=== PATIENT | male | born 1960 | race Caucasian/White ===

== ENCOUNTER 2017-07-15 08:30 | Inpatient (IN) ==
[2017-07-07 17:03] LABS: Appearance,Urine CLEAR; Bilirubin,Urine NEG (NEG); Color,Urine YELLOW; Glucose,Urine (UA) NEGATIVE (NEG); Leukocyte Esterase,Urine NEG /uL (NEG); Nitrate,Urine NEG (NEG); Protein,Urine NEG (NEG); Urine Blood NEG mg/dL (<0.03); Urobilinogen,Urine NEG (NEG)
[2017-07-07 17:16] LABS: Basophils # (Auto) 0 K/mcL (0.0-0.3); Basophils % (Auto) 0.1 % (0.0-2.0); Eosinophils # (Auto) 0.1 K/mcL (0.0-0.7); Eosinophils % (Auto) 1.4 % (0.0-7.0); Granulocytes % (Auto) 69.5 % (38.0-78.0); Lymphocytes # (Auto) 1.2 K/mcL (1.5-4.8); Lymphocytes % (Auto) 20.5 % (15.5-49.0); Mean Corpuscular HGB Conc 33.7 g/dL (31.0-36.0); Mean Corpuscular Hemoglobin 29.6 pg (26.0-34.0); Monocytes # (Auto) 0.5 K/mcL (0.1-0.9); Monocytes % (Auto) 8.5 % (1.0-12.0); Platelet Count 258 K/mcL (140-440); RBC 4.66 M/mcL (4.50-5.90); Red Cell Distribution Width 13.5 % (11.5-14.5)
[2017-07-07 17:26] LABS: Blood Urea Nitrogen 16 mg/dl (6-20)
--- NOTE | 2017-07-09 09:32 | EKG Interpretations ---
EKG from 07/07/2017: Bradycardia of 54. Otherwise unremarkable EKG. GITA:raul Job ID: [id number] Doc ID: [id number] Yeison Rondon MD
[~2017-07-15 08:30] MED LIST: ACETAMINOPHEN 500 MG TABLET PO SCH; CELECOXIB 200 MG CAPSULE PO SCH; KETOROLAC 30 MG, ROPIVACAINE HCL/PF 49.5 ML, EPINEPHrine 0.5 MG, 0.9 % SODIUM CHLORIDE ... IJ SCH; PREGABALIN 75 MG CAPSULE PO SCH; ceFAZolin 1 GM VIAL IV SCH; oxyCODONE 10 MG TAB.ER.12H PO SCH
[2017-07-15] MEDS ORDERED: PROPOFOL 200 MG/20 ML VIAL IV ONE (13:40)
[2017-07-15] MEDS ORDERED: TRANEXAMIC ACID 1,000 MG/10 ML VIAL IV ONE (13:40)
[2017-07-15] MEDS ORDERED: ONDANSETRON 4 MG/2 ML VIAL IV ONE (13:40)
[2017-07-15] MEDS ORDERED: ROPIVACAINE HCL/PF 20 ML VIAL IJ ONE (13:40)
[2017-07-15] MEDS ORDERED: LIDOCAINE HCL/PF 100 MG/5 ML SYRINGE IV ONE (13:40)
[2017-07-15] MEDS ORDERED: DEXAMETHASONE 10 MG/ML VIAL IV ONE (13:40)
[2017-07-15] MEDS ORDERED: MIDAZOLAM 2 MG/2 ML VIAL IV ONE (13:40)
[2017-07-15] MEDS ORDERED: GENTAMICIN SULFATE 800 MG/20 ML VIAL IR ONE (14:43)
[2017-07-15] MEDS ORDERED: NALOXONE HCL 0.4 MG/ML VIAL IV PRN (15:00)
[2017-07-15] MEDS ORDERED: LACTATED RINGERS 1,000 ML IV SCH (15:00)
[2017-07-15] MEDS ORDERED: LACTATED RINGERS 250 ML IV PRN (15:00)
[2017-07-15] MEDS ORDERED: ePHEDrine 50 MG/ML AMPUL IV PRN (15:00)
[2017-07-15] MEDS ORDERED: FLUMAZENIL 0.1 MG/ML ML IV PRN (15:00)
[2017-07-15] MEDS ORDERED: METHOCARBAMOL 1,000 MG/10 ML VIAL IV PRN (15:00)
[2017-07-15] MEDS ORDERED: BENZOCAINE/MENTHOL 1 LOZENGE PO PRN ×2 (15:00→15:28)
[2017-07-15] MEDS ORDERED: HYDROmorphone 2 MG/ML SYRINGE IV PRN ×2 (15:00→15:28)
[2017-07-15] MEDS ORDERED: ONDANSETRON 4 MG/2 ML VIAL IV PRN ×2 (15:00→15:28)
[2017-07-15] MEDS ORDERED: MEPERIDINE 25 MG/ML SYRINGE IV PRN (15:00)
[2017-07-15] MEDS ORDERED: IPRATROPIUM/ALBUTEROL 3 ML AMPUL.NEB NEB PRN (15:00)
[2017-07-15] MEDS ORDERED: diphenhydrAMINE 50 MG/ML VIAL IV PRN (15:00)
[2017-07-15] MEDS ORDERED: MEPERIDINE 50 MG/ML SYRINGE IM PRN (15:00)
[2017-07-15] MEDS ORDERED: fentaNYL 100 MCG/2 ML VIAL IV PRN (15:00)
--- NOTE | 2017-07-15 15:27 | Brief Operative Note ---
Date of procedure: 07/15/17 Pre-op diagnosis: right knee oa Post-op diagnosis: same Procedure: right total knee arthroplasty Grafts/Implants: Yes Anesthesia: spinal Complications: none Surgeon: Joey Thayer Plumber Helper: Ngozi Ozuna Estimated blood loss (cc): 100 Tourniquet Time (Minutes): 64 Specimens Removed/Pathology: none sent Disposition: PACU
[2017-07-15] MEDS ORDERED: METHOCARBAMOL 750 MG TABLET PO PRN (15:28)
[2017-07-15] MEDS ORDERED: MAGNESIUM HYDROXIDE 30 ML ORAL.SUSP PO PRN (15:28)
[2017-07-15] MEDS ORDERED: POLYETHYLENE GLYCOL 3350 17 GM PACKET PO PRN (15:28)
[2017-07-15] MEDS ORDERED: TRANEXAMIC ACID 1,000 MG/10 ML VIAL IV SCH (15:28)
[2017-07-15] MEDS ORDERED: FLEETS ADULT ENEMA PR PRN (15:28)
[2017-07-15] MEDS ORDERED: ONDANSETRON ODT 4 MG TABLET SL PRN (15:28)
[2017-07-15] MEDS ORDERED: BISACODYL 10 MG SUPP.RECT PR PRN (15:28)
--- NOTE | 2017-07-15 15:52 | Operative Note ---
DATE OF OPERATION: 07/15/2017 PREOPERATIVE DIAGNOSIS: Degenerative joint disease, right knee. POSTOPERATIVE DIAGNOSIS: Degenerative joint disease, right knee. PROCEDURE: Right total knee arthroplasty. SURGEON: Sun Thayer M.D. CELL BUILDER SURGEON: Ngozi Ozuna PA-C and Ellen Saunders PA-C. ANESTHESIA: Spinal with LMA assist. ESTIMATED BLOOD LOSS: 100 mL. COMPLICATIONS: None noted. SPECIMENS REMOVED: None. DRAINS: None. TOURNIQUET TIME: 64 minutes at 300 mmHg. IMPLANTS: DePuy CMW2 bone cement with gentamicin x4, 20 grams; DePuy Attune femoral posterior stabilized size 6 right cemented; DePuy Attune tibial insert fixed bearing posterior stabilized size 6, 5 mm AOX; DePuy Attune tibial base fixed bearing size 5 cemented; DePuy Attune patella medialized dome 38 mm cemented AOX. INDICATIONS: The patient has had a long-standing history of worsening pain in the knee that has failed conservative treatment. Radiographs have confirmed advanced degenerative joint disease. After a long discussion about treatment options, the patient elected to proceed with a knee arthroplasty. The risks and benefits were discussed with the patient in detail including, but not limited to, the risks of anesthesia, problems with the heart or lungs related to anesthesia, infection, compromise or injury to the nerves and blood vessels, deep venous thrombosis, pulmonary embolism, pneumonia, continued pain after surgery, worsening pain or symptoms after surgery, swelling, loss of motion, instability, leg length discrepancy, and need for repeat surgery. DESCRIPTION OF PROCEDURE: The patient was seen in the pre-anesthesia waiting room where all questions were answered and the correct side and site were identified and marked. The patient was transferred to the operating room and administered the anesthetic and given pre-operative antibiotics. A time-out was then called. The extremity was prepped and draped, exsanguinated, and the tourniquet was inflated to 300 mmHg. A midline skin incision was then made with a standard medial parapatellar arthrotomy. Debridement of the menisci, ACL, and PCL was performed followed by balancing releases in the medial lateral plane. We then established intramedullary access to both the femur and tibia in a standard fashion. The femoral guide joaquín was initially placed with the distal femoral guide, pinned into place, and the distal femoral cut was performed and checked with a flat plate. We then turned our attention to the tibia. The intramedullary guide was placed with the proximal tibial cutting block. The block was appropriately positioned off the affected side, varus and valgus was checked with the extra-medullary guide, and the block was pinned into place. The proximal tibial cut was performed and the tibia was prepared for the tibial implant with appropriate rotation. The tibia, femur, and posterior compartment were debrided of osteophytes, loose bodies, and meniscal fragments We then used the gap balancing technique to balance extension with the first two cuts and good balancing was obtained with a 10 millimeter gap block. We turned our attention back to the femur and used the referencing block and implant to size appropriately. Using the gap balancing technique for the flexion space we set our rotation of the femur off the tibial cut. Anesthesia gave the patient 1 gram of Tranexamic Acid via an intravenous route. We placed the 4 in 1 cutting block and made anterior, posterior, and chamfer cuts. Box plasty cuts were then made in a standard fashion for the posterior stabilized prosthesis. We then completed osteophyte release and posterior capsule release from the posterior compartment. Trials were placed and we chose the polyethylene insert thickness that provided the best stability in all planes. With the trials in place, we did a measured resection for a resurfacing patella. We sized the patella and placed the patella trial and performed a lateral facetectomy with the saw and rongeur. Good tracking was obtained. We removed all trials, irrigated and dried all cut surfaces. We cemented the components into place including tibia, femur and patella. We placed a trial liner and held the knee in full extension with the patella compressed while the cement cured. We then removed all excess cement and placed the final polyethylene tibiofemoral component. Irrigation with 3 liters of antibiotic saline was then performed using jet-lavage. We let the tourniquet down and coagulated bleeding vessels. We injected a 100 cubic centimeter volume including Ropivacaine 49.25 cubic centimeters at 5 milligrams per cubic centimeter, Ketorolac 30 milligrams, and Epinephrine 0.5 milligrams into 100 cubic centimeters volume of normal saline. We placed a deep drain and closed the retinaculum with looped #0 Maxon. We closed the subcutaneous tissue and skin in layers out to ratna in the skin. A sterile pressure dressing was applied. All needle and sponge counts were correct. The patient was transferred to the recovery room in stable condition. AMARIS:dima Job ID: [id number] Doc ID: [id number] Sun Thayer MD
[2017-07-15] MEDS: 0.9 % SODIUM CHLORIDE 1,000 ML IV SCH ×2 (16:53→23:18)
--- NOTE | 2017-07-15 17:23 | XRay Report ---
CLINICAL INFORMATION: Postop total knee prostheses COMPARISON: None. FINDINGS: Total knee prostheses is anatomically aligned. No osseous normality. Soft tissues swelling and gas seen as expected. IMPRESSION: Negative Interpreted and Authenticated by: Joey Cleveland 07/15/17
[2017-07-15] MEDS: KETOROLAC 15 MG/ML VIAL IV SCH ×2 (18:10→23:29)
[2017-07-15] MEDS: ceFAZolin 1 GM VIAL IV SCH (20:00)
[2017-07-15] MEDS: ASPIRIN 325 MG ENTERIC COATED TABLET PO SCH (20:00)
[2017-07-15] MEDS: DOCUSATE SODIUM 100 MG CAPSULE PO SCH (20:00)
[2017-07-15] MEDS: 0.9 % SODIUM CHLORIDE 10 ML SYRINGE IV SCH (20:01)
[2017-07-15] MEDS ORDERED: SENNOSIDES 1 TABLET PO SCH (21:00)
[2017-07-16] MEDS: ceFAZolin 1 GM VIAL IV SCH (04:52)
[2017-07-16] MEDS: 0.9 % SODIUM CHLORIDE 10 ML SYRINGE IV SCH (04:53)
[2017-07-16] MEDS: KETOROLAC 15 MG/ML VIAL IV SCH ×2 (05:30→11:46)
--- NOTE | 2017-07-16 07:35 | Orthopedic Progress Note ---
Subjective Patient information: Note initiated : 07/16/17 at 7:34 am Service Date, if different from initiated Date: [] Patient: Joey Hendrix 57 y/o M admitted on 07/15/17 for Right Total Knee Arthroplasty. Chief Complaint: [] Interval history: doing well, pain under control Objective Vital signs: Vital Signs Temp Pulse Pulse Pulse Resp BP BP 07/16/17 07:21 98.0 F 14 117/64 07/16/17 07:01 53 L 07/16/17 03:22 98.0 F 54 L 14 116/64 07/15/17 23:30 97.8 F 57 L 14 136/58 07/15/17 19:09 98.0 F 57 L 16 137/67 07/15/17 18:00 119/66 07/15/17 17:30 113/62 07/15/17 17:00 111/65 07/15/17 16:35 47 L 108/64 07/15/17 16:10 97.8 F 70 16 136/56 07/15/17 16:05 97.8 F 56 L 16 128/67 07/15/17 16:00 97.8 F 49 L 16 127/61 07/15/17 15:55 97.8 F 56 L 16 132/56 07/15/17 10:45 97.8 F 62 16 136/72 Pulse Ox 07/16/17 07:21 97 07/16/17 07:01 97 07/16/17 03:22 96 07/15/17 23:30 98 07/15/17 19:09 100 07/15/17 18:00 100 07/15/17 17:30 95 07/15/17 17:00 97 07/15/17 16:35 97 07/15/17 16:10 100 07/15/17 16:05 100 07/15/17 16:00 100 07/15/17 15:55 100 07/15/17 10:45 93 Intake and Output 07/15/17 07/16/17 07/16/17 21:59 05:59 13:59 Intake Total 1700 / 1700 800 / 800 Output Total 650 / 650 900 / 900 200 / 200 Balance 1050 / 1050 -100 / -100 -200 / -200 Intake: Oral 800 / 800 IV - Manual Only 1700 / 1700 Output: Urine Catheter Amount 400 / 400 Void Amount 250 / 250 900 / 900 200 / 200 Other: Meal Dinner Percent of Meal Consumed 100% Feeding Ability Independent # Voids 1 Weight 189 lb 5 oz Intake & Output: Intake & Output 07/15/17 07/16/17 07/16/17 21:59 05:59 13:59 Intake Total 1700 / 1700 800 / 800 Output Total 650 / 650 900 / 900 200 / 200 Balance 1050 / 1050 -100 / -100 -200 / -200 Weight 189 lb 5 oz Intake: Oral 800 / 800 IV - Manual Only 1700 / 1700 Output: Urine Catheter Amount 400 / 400 Void Amount 250 / 250 900 / 900 200 / 200 Other: Meal Dinner Percent of Meal Consumed 100% Feeding Ability Independent # Voids 1 Incision: Yes healing Incision clean and dry: Yes Dressing: Yes clean, Yes dry, Yes intact Weight bearing status: full Neurological exam IM: Yes alert, Yes normal gait, Yes oriented X3, Yes motor sensory intact, Yes neurovascular intact Extremities exam IM: No calf tenderness, Yes Foot pink and warm, Yes neurovascular intact - Labs CBC & BMP: 07/16/17 06:23 07/07/17 15:40 Labs: Orthopedic Labs 07/07/17 14:54 PT 14.1 INR 1.1 07/16/17 07/07/17 06:23 14:54 Hgb 12.2 L 13.8 Hct 36.3 L 41.0 Assessment and Plan (1) Knee osteoarthritis pod 1 s/p tka wbat pain control dvt prophylaxis d/c planning Status: Acute
--- NOTE | 2017-07-16 07:36 | Discharge Summary ---
Ortho Discharge - TKA - Patient Instructions Diet: Regular Diet Activity: activity as tolerated, ambulate with assistive device, weight bearing as tolerated Total Knee Protocol: For Total Knee: Start ROM LUIGI with stationary bike or rocking chair. Work on gaining full extension of knee. Posterior dislocation precautions provided. Hip abductor strengthening and gait training instructions provided. Apply Cryocuff as instructed. Dressing Care: May shower in 2 days Patient Education: Total Knee Replacement (DC), General Anesthesia (GEN) - Problem Maintenance (1) Knee osteoarthritis Status: Acute - Follow Up Plan Disposition: Home, Self-Care Prognosis: Good Rehab Potential: Good I certify that the patient requires SNF services: No Overall status at discharge: patient is progressing back to baseline
[2017-07-16] MEDS: 0.9 % SODIUM CHLORIDE 1,000 ML IV SCH (07:48)
[2017-07-16] MEDS ORDERED: MULTIVIT,THER IRON,CA,FA & MIN 1 TABLET PO SCH (09:00)
[2017-07-16] MEDS: HYDROcodone/APAP 10/325MG TABLET PO PRN ×2 (09:07→12:41)
[2017-07-16] MEDS: DOCUSATE SODIUM 100 MG CAPSULE PO SCH (09:07)
[2017-07-16] MEDS: ASPIRIN 325 MG ENTERIC COATED TABLET PO SCH (09:10)
== END 2017-07-16 12:45 | disposition home or self-care (01) | DRG 470 ==
LOC: MEDSUR 10:15
PROVIDERS: ADMIT Orthopaedic Surgery Sports Medicine; ATTEND Orthopaedic Surgery Sports Medicine

== ENCOUNTER 2017-09-16 08:40 | Inpatient (IN) ==
[2017-09-15 13:16] LABS: Basophils # (Auto) 0 K/mcL (0.0-0.3); Basophils % (Auto) 0.4 % (0.0-2.0); Eosinophils # (Auto) 0.2 K/mcL (0.0-0.7); Eosinophils % (Auto) 2.7 % (0.0-7.0); Granulocytes % (Auto) 60.7 % (38.0-78.0); Lymphocytes # (Auto) 1.4 K/mcL (1.5-4.8); Lymphocytes % (Auto) 22.3 % (15.5-49.0); Mean Cell Volume 86.8 fL (80.0-100.0); Mean Corpuscular HGB Conc 34.5 g/dL (31.0-36.0); Mean Corpuscular Hemoglobin 29.9 pg (26.0-34.0); Monocytes # (Auto) 0.9 K/mcL (0.1-0.9); Monocytes % (Auto) 13.9 % (1.0-12.0); Platelet Count 309 K/mcL (140-440); RBC 4.52 M/mcL (4.50-5.90); Red Cell Distribution Width 13.4 % (11.5-14.5)
[2017-09-15 13:39] LABS: Blood Urea Nitrogen 16 mg/dl (6-20)
[2017-09-15 14:59] LABS: Appearance,Urine CLEAR; Bilirubin,Urine NEG (NEG); Color,Urine YELLOW; Glucose,Urine (UA) NEGATIVE (NEG); Leukocyte Esterase,Urine NEG /uL (NEG); Nitrate,Urine NEG (NEG); Protein,Urine NEG (NEG); Specific Gravity,Urine 1.023 (1.000-1.035); Urine Blood NEG mg/dL (<0.03); Urobilinogen,Urine NEG (NEG)
[~2017-09-16 08:40] MED LIST changes: -ACETAMINOPHEN 500 MG TABLET PO SCH
[2017-09-16] MEDS ORDERED: PHENYLEPHRINE 10 MG/ML VIAL IV ONE (15:45)
[2017-09-16] MEDS ORDERED: PROPOFOL 200 MG/20 ML VIAL IV ONE (15:45)
[2017-09-16] MEDS ORDERED: ROPIVACAINE HCL/PF 20 ML VIAL IJ ONE (15:45)
[2017-09-16] MEDS ORDERED: LIDOCAINE HCL/PF 100 MG/5 ML SYRINGE IV ONE (15:45)
[2017-09-16] MEDS ORDERED: MIDAZOLAM 5 MG/5 ML VIAL IV ONE (15:45)
[2017-09-16] MEDS ORDERED: TRANEXAMIC ACID 1,000 MG/10 ML VIAL IV ONE (15:45)
[2017-09-16] MEDS ORDERED: ONDANSETRON 4 MG/2 ML VIAL IV ONE (15:45)
[2017-09-16] MEDS ORDERED: GLYCOPYRROLATE 0.2 MG/ML VIAL IV ONE (15:45)
[2017-09-16] MEDS ORDERED: DEXAMETHASONE 10 MG/ML VIAL IV ONE (15:45)
[2017-09-16] MEDS ORDERED: GENTAMICIN SULFATE 800 MG/20 ML VIAL IR ONE (16:26)
[2017-09-16] MEDS ORDERED: fentaNYL 100 MCG/2 ML VIAL IV PRN (17:03)
[2017-09-16] MEDS ORDERED: IPRATROPIUM/ALBUTEROL 3 ML AMPUL.NEB NEB PRN (17:03)
[2017-09-16] MEDS ORDERED: ePHEDrine 50 MG/ML AMPUL IV PRN (17:03)
[2017-09-16] MEDS ORDERED: ONDANSETRON 4 MG/2 ML VIAL IV PRN ×2 (17:03→17:20)
[2017-09-16] MEDS ORDERED: BENZOCAINE/MENTHOL 1 LOZENGE PO PRN ×2 (17:03→17:20)
[2017-09-16] MEDS ORDERED: METHOCARBAMOL 1,000 MG/10 ML VIAL IV PRN (17:03)
[2017-09-16] MEDS ORDERED: PROMETHAZINE 25 MG/ML VIAL IV PRN (17:03)
[2017-09-16] MEDS ORDERED: MEPERIDINE 25 MG/ML SYRINGE IV PRN (17:03)
[2017-09-16] MEDS ORDERED: LACTATED RINGERS 1,000 ML IV SCH (17:15)
[2017-09-16] MEDS ORDERED: METHOCARBAMOL 750 MG TABLET PO PRN (17:20)
[2017-09-16] MEDS ORDERED: POLYETHYLENE GLYCOL 3350 17 GM PACKET PO PRN (17:20)
[2017-09-16] MEDS ORDERED: PROMETHAZINE 25 MG/ML VIAL IM PRN (17:20)
[2017-09-16] MEDS ORDERED: ONDANSETRON ODT 4 MG TABLET SL PRN (17:20)
[2017-09-16] MEDS ORDERED: HYDROmorphone 2 MG/ML SYRINGE IV PRN (17:20)
[2017-09-16] MEDS ORDERED: FLEETS ADULT ENEMA PR PRN (17:20)
[2017-09-16] MEDS ORDERED: BISACODYL 10 MG SUPP.RECT PR PRN (17:20)
[2017-09-16] MEDS ORDERED: TRANEXAMIC ACID 1,000 MG/10 ML VIAL IV SCH (17:20)
[2017-09-16] MEDS ORDERED: MAGNESIUM HYDROXIDE 30 ML ORAL.SUSP PO PRN (17:20)
--- NOTE | 2017-09-16 17:20 | Brief Operative Note ---
Date of procedure: 09/16/17 Pre-op diagnosis: left knee oa Post-op diagnosis: same Procedure: left total knee arthroplasty Grafts/Implants: Yes Anesthesia: spinal Complications: none Surgeon: Joey Thayer Manager Immunology: Ellen Saunders Estimated blood loss (cc): 100 Tourniquet Time (Minutes): 64 Specimens Removed/Pathology: none sent Condition: stable Disposition: PACU
[2017-09-16] MEDS: KETOROLAC 30 MG/ML VIAL IV SCH (20:00)
[2017-09-16] MEDS: ASPIRIN 325 MG ENTERIC COATED TABLET PO SCH (20:01)
[2017-09-16] MEDS: 0.9 % SODIUM CHLORIDE 1,000 ML IV SCH (20:01)
[2017-09-16] MEDS: DOCUSATE SODIUM 100 MG CAPSULE PO SCH (20:01)
[2017-09-16] MEDS ORDERED: SENNOSIDES 1 TABLET PO SCH (21:00)
[2017-09-16] MEDS: HYDROcodone/APAP 10/325MG TABLET PO PRN (21:26)
[2017-09-17] MEDS: KETOROLAC 30 MG/ML VIAL IV SCH ×3 (00:54→12:51)
[2017-09-17] MEDS: 0.9 % SODIUM CHLORIDE 10 ML SYRINGE IV SCH ×2 (00:54→10:28)
[2017-09-17] MEDS: ceFAZolin 1 GM VIAL IV SCH ×2 (01:26→10:28)
[2017-09-17] MEDS: HYDROcodone/APAP 10/325MG TABLET PO PRN ×4 (01:27→14:19)
--- NOTE | 2017-09-17 06:27 | XRay Report ---
CLINICAL INFORMATION: Postop total knee prostheses COMPARISON: None. FINDINGS: Total knee prostheses is anatomically aligned. There are no osseous abnormalities. Periarticular gas and soft tissue swelling seen - as expected. IMPRESSION: Negative Interpreted and Authenticated by: Joey Cleveland 09/17/17
--- NOTE | 2017-09-17 07:14 | Operative Note ---
DATE OF OPERATION: 09/16/2017 PREOPERATIVE DIAGNOSIS: Degenerative joint disease, left knee. POSTOPERATIVE DIAGNOSIS: Degenerative joint disease, left knee. PROCEDURE: Left total knee arthroplasty. SURGEON: Sun Thayer M.D. SENIOR UX DESIGNER SURGEON: Ellen Saunders PA-C ANESTHESIA: Spinal with LMA assist. ESTIMATED BLOOD LOSS: 100 mL COMPLICATIONS: None noted. SPECIMENS REMOVED: None. DRAINS: None. TOURNIQUET TIME: 64 minutes at 300 mmHg. IMPLANTS: DePuy CMW gentamycin bone cement 20 grams x4, DePuy Attune tibial insert fixed bearing posterior stabilized size 6, 7 mm AOX, DePuy Attune tibial base fixed bearing size 5 cemented, DePuy Attune femoral posterior stabilized size 6 left cemented, DePuy Attune patella medialized dome, 38 mm cemented AOX. INDICATIONS: The patient has had a long-standing history of worsening pain in the knee that has failed conservative treatment. Radiographs have confirmed advanced degenerative joint disease. After a long discussion about treatment options, the patient elected to proceed with a knee arthroplasty. The risks and benefits were discussed with the patient in detail including, but not limited to, the risks of anesthesia, problems with the heart or lungs related to anesthesia, infection, compromise or injury to the nerves and blood vessels, deep venous thrombosis, pulmonary embolism, pneumonia, continued pain after surgery, worsening pain or symptoms after surgery, swelling, loss of motion, instability, leg length discrepancy, and need for repeat surgery. DESCRIPTION OF PROCEDURE: The patient was seen in the pre-anesthesia waiting room where all questions were answered and the correct side and site were identified and marked. The patient was transferred to the operating room and administered the anesthetic and given pre-operative antibiotics. A time-out was then called. The extremity was prepped and draped, exsanguinated, and the tourniquet was inflated to 300 mmHg. A midline skin incision was then made with a standard medial parapatellar arthrotomy. Debridement of the menisci, ACL, and PCL was performed followed by balancing releases in the medial lateral plane. We then established intramedullary access to both the femur and tibia in a standard fashion. The femoral guide joaquín was initially placed with the distal femoral guide, pinned into place, and the distal femoral cut was performed and checked with a flat plate. We then turned our attention to the tibia. The intramedullary guide was placed with the proximal tibial cutting block. The block was appropriately positioned off the affected side, varus and valgus was checked with the extra-medullary guide, and the block was pinned into place. The proximal tibial cut was performed and the tibia was prepared for the tibial implant with appropriate rotation. The tibia, femur, and posterior compartment were debrided of osteophytes, loose bodies, and meniscal fragments We then used the gap balancing technique to balance extension with the first two cuts and good balancing was obtained with a 10 millimeter gap block. We turned our attention back to the femur and used the referencing block and implant to size appropriately. Using the gap balancing technique for the flexion space we set our rotation of the femur off the tibial cut. Anesthesia gave the patient 1 gram of Tranexamic Acid via an intravenous route. We placed the 4 in 1 cutting block and made anterior, posterior, and chamfer cuts. Box plasty cuts were then made in a standard fashion for the posterior stabilized prosthesis. We then completed osteophyte release and posterior capsule release from the posterior compartment. Trials were placed and we chose the polyethylene insert thickness that provided the best stability in all planes. With the trials in place, we did a measured resection for a resurfacing patella. We sized the patella and placed the patella trial and performed a lateral facetectomy with the saw and rongeur. Good tracking was obtained. We removed all trials, irrigated and dried all cut surfaces. We cemented the components into place including tibia, femur and patella. We placed a trial liner and held the knee in full extension with the patella compressed while the cement cured. We then removed all excess cement and placed the final polyethylene tibiofemoral component. Irrigation with 3 liters of antibiotic saline was then performed using jet-lavage. We let the tourniquet down and coagulated bleeding vessels. We injected a 100 cubic centimeter volume including Ropivacaine 49.25 cubic centimeters at 5 milligrams per cubic centimeter, Ketorolac 30 milligrams, and Epinephrine 0.5 milligrams into 100 cubic centimeters volume of normal saline. We placed a deep drain and closed the retinaculum with looped #0 Maxon. We closed the subcutaneous tissue and skin in layers out to ratna in the skin. A sterile pressure dressing was applied. All needle and sponge counts were correct. The patient was transferred to the recovery room in stable condition. AMARIS:raul Job ID: [id number] Doc ID: [id number] Sun Thayer MD
--- NOTE | 2017-09-17 07:16 | Orthopedic Progress Note ---
Subjective Patient information: Note initiated : 09/17/17 at 7:15 am Service Date, if different from initiated Date: [] Patient: Joey Hendrix 57 y/o M admitted on 09/16/17 for Left Total Knee Arthroplasty. Chief Complaint: [] Interval history: doing well no complaints Objective Vital signs: Vital Signs Temp Pulse Resp BP BP Pulse Ox 09/17/17 07:12 97.6 F 22 118/70 95 09/17/17 03:26 97.6 F 53 L 20 114/66 94 09/17/17 00:00 98.0 F 53 L 20 127/75 97 09/16/17 22:14 98 09/16/17 21:01 60 146/73 100 09/16/17 20:01 46 L 112/69 98 09/16/17 19:31 60 110/71 100 09/16/17 19:24 97.8 F 65 18 121/76 99 09/16/17 19:11 79 112/75 99 09/16/17 18:56 65 114/64 99 09/16/17 18:41 68 115/61 98 09/16/17 18:26 96.4 F L 80 20 124/57 98 09/16/17 18:17 97.8 F 75 14 122/61 96 09/16/17 18:08 78 14 118/64 98 09/16/17 18:03 79 14 129/62 98 09/16/17 17:58 82 16 120/58 99 09/16/17 17:53 65 14 131/65 99 09/16/17 17:48 60 14 98/53 100 09/16/17 17:43 60 14 90/52 98 09/16/17 17:38 97.5 F 58 L 14 93/49 99 09/16/17 16:00 97.4 F 125/83 98 09/16/17 09:00 63 09/16/17 08:55 97.4 F 63 16 126/84 98 Intake and Output 09/16/17 09/17/17 09/17/17 21:59 05:59 13:59 Intake Total 1600 / 1600 900 / 900 Output Total 80 / 80 1475 / 1475 350 / 350 Balance 1520 / 1520 -575 / -575 -350 / -350 Intake: IV 1600 / 1600 Oral 900 / 900 Output: Void Amount 1475 / 1475 350 / 350 Estimated Blood Loss 80 / 80 Other: Weight 192 lb Intake & Output: Intake & Output 09/16/17 09/17/17 09/17/17 21:59 05:59 13:59 Intake Total 1600 / 1600 900 / 900 Output Total 80 / 80 1475 / 1475 350 / 350 Balance 1520 / 1520 -575 / -575 -350 / -350 Weight 192 lb Intake: IV 1600 / 1600 Oral 900 / 900 Output: Void Amount 1475 / 1475 350 / 350 Estimated Blood Loss 80 / 80 Incision: Yes healing Incision clean and dry: Yes Dressing: Yes clean, Yes dry, Yes intact Weight bearing status: full Neurological exam IM: Yes alert, Yes normal gait, Yes oriented X3, Yes motor sensory intact, Yes neurovascular intact Extremities exam IM: No calf tenderness, No tenderness, Yes Foot pink and warm, Yes neurovascular intact - Labs CBC & BMP: 09/17/17 05:10 09/15/17 10:46 Labs: Orthopedic Labs 09/15/17 10:46 PT 14.5 INR 1.1 09/17/17 09/15/17 05:10 10:46 Hgb 11.8 L 13.5 Hct 34.5 L 39.2 L Assessment and Plan (1) Knee osteoarthritis pod 1 s/p tka wbat pain control dvt prophylaxis dc planning - home if passes pt Status: Acute
--- NOTE | 2017-09-17 07:17 | Discharge Summary ---
Ortho Discharge - TKA - Patient Instructions Diet: Regular Diet Activity: ambulate with assistive device, weight bearing as tolerated Total Knee Protocol: For Total Knee: Start ROM LUIGI with stationary bike or rocking chair. Work on gaining full extension of knee. Posterior dislocation precautions provided. Hip abductor strengthening and gait training instructions provided. Apply Cryocuff as instructed. Dressing Care: May shower in 2 days, Other (keep dermabond in place) - Problem Maintenance (1) Knee osteoarthritis Status: Acute - Follow Up Plan Disposition: Home, Self-Care Prognosis: Good Rehab Potential: Good I certify that the patient requires SNF services: No Overall status at discharge: patient is progressing back to baseline
[2017-09-17] MEDS: DOCUSATE SODIUM 100 MG CAPSULE PO SCH (09:48)
[2017-09-17] MEDS ORDERED: ceFAZolin 1 GM VIAL IV SCH (10:15)
[2017-09-17] MEDS: ASPIRIN 325 MG ENTERIC COATED TABLET PO SCH (10:26)
[2017-09-17] MEDS: 0.9 % SODIUM CHLORIDE 1,000 ML IV SCH ×2 (11:39→11:40)
== END 2017-09-17 14:40 | disposition home or self-care (01) | DRG 470 ==
LOC: MEDSUR 08:40
PROVIDERS: ADMIT Orthopaedic Surgery Sports Medicine; ATTEND Orthopaedic Surgery Sports Medicine